=== PATIENT | male | born 1950 | race Caucasian/White ===

== ENCOUNTER → 2018-05-21 | Outpatient (CLI) | payer MEDICARE, OTHER ==
--- NOTE | 2018-05-21 14:53 | Diagnostic Imaging Report ---
INDICATION: Chronic right knee pain. Time of exam 2:37 PM 3 views of the right knee were obtained. Medial compartmental and patellofemoral compartmental degenerative change is seen with joint space narrowing and marginal spurring. Lateral compartment is maintained. No fracture, dislocation or effusion is seen. IMPRESSION: Degenerative changes. No acute bony abnormality is detected. Dictated by: Dictated on workstation # [id number]
== END ==
LOC: RAD FS 14:32
PROVIDERS: ATTEND Nurse Practitioner
DX: M17.11 Unilateral primary osteoarthritis, right knee (principal)
CPT/HCPCS: 73562

== ENCOUNTER → 2018-10-03 | Outpatient (CLI) | payer MEDICARE, OTHER ==
[~2018-10-03] MED LIST: CATHETER FLUSH 10 ML SYR IV PRN; HOLD METFORMIN - RECEIVED CONTRAST 20 ML VIAL IV SCH; IOHEXOL 350 MG/ML 100 ML (OMNIPAQUE 350) VIAL IV ONE; NS 100 ML (IVPB) BAG IV ONE
[2018-10-03 13:54] LABS: HEMATOCRIT 41 % (40-54); HEMOGLOBIN 13.5 G/DL (13.3-17.7); MEAN CORPUSCULAR HEMOGLOBIN 33 PG (25-34); WHITE BLOOD COUNT 7.1 10^3/uL (4.3-11.0)
[2018-10-03 13:55] LABS: BASOPHILS % (AUTO) 0 % (0-10); EOSINOPHILS # (AUTO) 0.1 10^3/uL (0.0-0.3); EOSINOPHILS % (AUTO) 1 % (0-10); LYMPHOCYTES # (AUTO) 1.5 X 10^3 (1.0-4.0); LYMPHOCYTES % (AUTO) 21 % (12-44); MEAN CORPUSCULAR HGB CONC 33 G/DL (32-36); MEAN CORPUSCULAR VOLUME 99 FL (80-99); MEAN PLATELET VOLUME 9.6 FL (7.4-10.4); MONOCYTES # (AUTO) 0.6 X 10^3 (0.0-1.0); MONOCYTES % (AUTO) 8 % (0-12); NEUTROPHILS # (AUTO) 4.9 X 10^3 (1.8-7.8); NEUTROPHILS % (AUTO) 69 % (42-75); PLATELET COUNT 235 10^3/uL (130-400); RED CELL DISTRIBUTION WIDTH 13.2 % (10.0-14.5)
[2018-10-03 14:07] LABS: ALANINE AMINOTRANSFERASE 24 U/L (0-55); ALBUMIN 4.4 GM/DL (3.2-4.5); ALKALINE PHOSPHATASE 92 U/L (40-136); BILIRUBIN,TOTAL 0.2 MG/DL (0.1-1.0); BUN/CREATININE RATIO 27; CALCIUM 9.5 MG/DL (8.5-10.1); CARBON DIOXIDE 26 MMOL/L (21-32); CHLORIDE 100 MMOL/L (98-107); CREATININE SERUM 1.01 MG/DL (0.60-1.30); GFR ESTIMATED > 60; GLUCOSE 117 MG/DL (70-105); POTASSIUM 4.2 MMOL/L (3.6-5.0); SODIUM 139 MMOL/L (135-145); TOTAL PROTEIN 7.1 GM/DL (6.4-8.2)
--- NOTE | 2018-10-04 12:24 | Diagnostic Imaging Report ---
PROCEDURE: CT chest, abdomen, and pelvis with and without contrast. TECHNIQUE: Precontrast images were obtained of the chest, abdomen, and pelvis. Multiple contiguous axial images were obtained through the chest, abdomen, and pelvis after administration of intravenous contrast. Auto Exposure Controls were utilized during the CT exam to meet ALARA standards for radiation dose reduction. INDICATION: Colon cancer. FINDINGS: The previous CT abdomen/pelvis exam of 09/09/2017 noted stranding about the head of the pancreas and raised the question of acute pancreatitis. On this exam, there is no stranding about the head of the pancreas. There do appear to be a few small nodular densities about the head of the pancreas but these are unchanged when compared to the prior exam. The liver is homogeneous and not enlarged. The spleen, gallbladder, kidneys, aorta, and inferior vena cava are unremarkable for an acute abnormality. A small cyst associated with the right kidney seen previously is again evident. The 1.1 cm low-density nodule arising from the right adrenal gland seen previously is again evident and no different. The left adrenal gland is unremarkable. The stomach is not well distended and consequently difficult to assess. As noted on the prior exam, there has been prior resection of the rectosigmoid colon. The anastomosis appears to be intact. There is diverticulosis of the sigmoid colon but there is no sign of acute diverticulitis. There is no pelvic mass or free fluid collection noted. The urinary bladder and prostate gland are unchanged when compared to the previous study. The prostate gland remains mildly enlarged. The appendix was visualized and is not abnormally thickened. There are no prior CT chest examinations available for comparison. The heart size is within normal limits. Sparse coronary artery calcifications are noted. The aorta is not abnormally dilated and there is no sign of dissection. There is no defect within the pulmonary arteries to indicate a pulmonary embolus. The lungs are generally clear and well aerated. There is no sign of failure, pneumonia, or of pleural effusion. There is no parenchymal lung mass identified. There is no mediastinal or hilar adenopathy. The thyroid gland is unremarkable. The bone windows show no sign of fracture or of a destructive lesion. IMPRESSION: 1. There is no acute abnormality of the chest, abdomen, or pelvis. There is no sign of neoplastic disease either. 2. The small nodular densities about the head of the pancreas are of uncertain etiology. These findings are similar to the prior exam. 3. The small right adrenal nodule seen previously appears stable. Most likely, this is a benign process. 4. The prostate gland remains mildly enlarged. Dictated by: Dictated on workstation # [id number]
== END ==
LOC: RAD FS 13:18
PROVIDERS: ATTEND Internal Medicine Hematology & Oncology
DX: C18.9 Malignant neoplasm of colon, unspecified (principal); E27.8 Other specified disorders of adrenal gland; K86.89 Other specified diseases of pancreas; N40.0 Benign prostatic hyperplasia without lower urinary tract symptoms
CPT/HCPCS: 36415; 71270; 74178; 80053; 82378; 83615; 85025

== ENCOUNTER → 2019-10-10 | Outpatient (CLI) | payer MEDICARE, OTHER ==
[~2019-10-10] MED LIST changes: +DIATRIZOATE MEGLUM/SODIUM 37% 120 ML (GASTROGRAFIN) PO ONE
[2019-10-10 08:34] LABS: HEMATOCRIT 40 % (40-54); HEMOGLOBIN 13.7 G/DL (13.3-17.7); MEAN CORPUSCULAR HEMOGLOBIN 33 PG (25-34); MEAN CORPUSCULAR HGB CONC 34 G/DL (32-36); MEAN CORPUSCULAR VOLUME 98 FL (80-99); MEAN PLATELET VOLUME 9.8 FL (7.4-10.4); PLATELET COUNT 230 10^3/uL (130-400); WHITE BLOOD COUNT 6.4 10^3/uL (4.3-11.0)
[2019-10-10 08:35] LABS: BASOPHILS % (AUTO) 1 % (0-10); EOSINOPHILS # (AUTO) 0.1 10^3/uL (0.0-0.3); EOSINOPHILS % (AUTO) 1 % (0-10); LYMPHOCYTES # (AUTO) 1.2 X 10^3 (1.0-4.0); LYMPHOCYTES % (AUTO) 19 % (12-44); MONOCYTES # (AUTO) 0.5 X 10^3 (0.0-1.0); MONOCYTES % (AUTO) 8 % (0-12); NEUTROPHILS # (AUTO) 4.6 X 10^3 (1.8-7.8); NEUTROPHILS % (AUTO) 71 % (42-75)
[2019-10-10 08:56] LABS: ALANINE AMINOTRANSFERASE 23 U/L (0-55); ALKALINE PHOSPHATASE 100 U/L (40-136); BILIRUBIN,TOTAL 0.4 MG/DL (0.1-1.0); BUN/CREATININE RATIO 20; CALCIUM 9.3 MG/DL (8.5-10.1); CARBON DIOXIDE 23 MMOL/L (21-32); CHLORIDE 101 MMOL/L (98-107); CREATININE SERUM 0.83 MG/DL (0.60-1.30); GFR ESTIMATED > 60; GLUCOSE 164 MG/DL (70-105); POTASSIUM 4.2 MMOL/L (3.6-5.0); SODIUM 137 MMOL/L (135-145); TOTAL PROTEIN 7.1 GM/DL (6.4-8.2)
[2019-10-10 08:57] LABS: ALBUMIN 4.3 GM/DL (3.2-4.5)
--- NOTE | 2019-10-10 10:16 | Diagnostic Imaging Report ---
PROCEDURE: CT chest, abdomen, and pelvis with and without contrast. TECHNIQUE: Precontrast images were obtained of the chest, abdomen, and pelvis. Multiple contiguous axial images were obtained through the chest, abdomen, and pelvis after administration of intravenous contrast. Auto Exposure Controls were utilized during the CT exam to meet ALARA standards for radiation dose reduction. INDICATION: Colon cancer. COMPARISON: 10/03/2018 and 09/09/2017 FINDINGS: No significant adenopathy within chest. No aneurysm or dissection of the thoracic aorta. The heart is within normal limits in size. No pericardial effusion. No pleural effusion. No pneumothorax. The lungs are clear of focal pulmonary opacity. The trachea is patent. Scattered osseous degenerative changes without acute osseous abnormality. The liver, spleen, and gallbladder are unremarkable. 1.1 cm nodule within the right adrenal gland is unchanged since September 2017. The left adrenal gland is unremarkable. The pancreas is unremarkable. Right renal cyst. The kidneys are otherwise unremarkable. Scattered vascular calcifications without aneurysmal dilatation of the abdominal aorta. Tiny fat-containing umbilical hernia. The urinary bladder is unremarkable. Small fat-containing bilateral inguinal hernias. The prostate gland is mildly enlarged. Postsurgical changes associated with the distal sigmoid colon. The appendix is unremarkable. No bowel obstruction or pneumatosis. No significant adenopathy, free air, or free fluid within the abdomen or pelvis. Scattered osseous degenerative changes without acute osseous abnormality. IMPRESSION: No acute abnormality. Postsurgical changes associated with the distal colon without definite evidence of metastatic disease. Small right adrenal gland nodule is indeterminate, though unchanged since September 2017. Dictated by: Dictated on workstation # [id number]
== END ==
LOC: RAD FS 08:10
PROVIDERS: ATTEND Internal Medicine Hematology & Oncology
DX: C19 Malignant neoplasm of rectosigmoid junction (principal); E27.8 Other specified disorders of adrenal gland; Z98.890 Other specified postprocedural states
CPT/HCPCS: 36415; 71270; 74178; 80053; 82378; 83615; 85025

== ENCOUNTER 2021-06-30 21:40 | Emergency (ER) | payer MEDICARE, OTHER ==
[~2021-06-30] VITALS: Ht 175 cm; Wt 103.1 kg
--- NOTE | 2021-06-30 21:53 | ED Integumentary General ---
General Stated Complaint: CAT BITE, R HAND LAC History of Present Illness Date Seen by Provider: June 30, 2021 Time Seen by Provider: 21:53 Initial Comments 71-year-old male presents with multiple cat bites to his right hand. Patient reports that their small cat got his leg stuck over a fireplace shelf and was dangling through the reached up to help him get down and the cat was just in pain and scared and bit him multiple times. Patient has multiple small puncture wounds diffusely over the back of his right hand. No suturable wounds. Patient reports he is up to date on his tetanus Allergies and Home Medications Allergies Coded Allergies: No Allergy Information Available (Unverified , 10/03/18) Patient Home Medication List Home Medication List Reviewed: Yes Review of Systems Review of Systems Constitutional: no symptoms reported EENTM: no symptoms reported Respiratory: no symptoms reported Cardiovascular: no symptoms reported Gastrointestinal: no symptoms reported Musculoskeletal: see HPI Skin: see HPI Psychiatric/Neurological: No Symptoms Reported Physical Exam Vital Signs Capillary Refill : General Appearance: WD/WN, no apparent distress Cardiovascular: normal peripheral pulses, regular rate, rhythm Respiratory: no respiratory distress, no accessory muscle use Extremities: normal range of motion, non-tender Neurologic/Psychiatric: alert, normal mood/affect, oriented x 3 Skin: other (Multiple small puncture wounds consistent with cat bite over the right hand with some mild swelling of the right hand) Progress/Results/Core Measures Progress Progress Note : Progress Note Patient with multiple small puncture wounds, I will have him keep it clean with warm soapy water. I will give him some prophylactic Augmentin due to the numerous number of cat bites on the hand and wrist for infection. After approximately 48 hours he could use thin layer of Vaseline. Recommend he keep it covered with sterile dressing for at least the next couple days. Patient stable and discharged Departure Impression Primary Impression: Cat bite Qualified Codes: W55.01XA - Bitten by cat, initial encounter Disposition: 01 HOME, SELF-CARE Condition: Stable Departure-Patient Inst. Referrals: REY LEONE MD (PCP/Family) Primary Care Physician Patient Instructions: Animal Bites (DC) Add. Discharge Instructions: Keep wound covered with clean sterile dressing for at least the next 48 hours Keep clean with warm soapy water You may use a thin layer of Vaseline over the wound after 48 hours Please monitor for infection and with any concerns follow-up with your primary care provider Scripts Amoxicillin/Potassium Clav (Amox Tr-K Clv 875-125 mg Tab) 875 Mg-125 Mg Tablet 1 EACH PO BID, #10 TAB Prov: HERMILO LARSON DO 06/30/21 HERMILO LARSON DO June 30, 2021 21:53
[2021-06-30] MEDS ORDERED: KETOROLAC 30 MG/ML VIAL IM STA (21:59)
[2021-06-30] MEDS ORDERED: AMOX1TAB12 PO (22:04)
[2021-06-30 22:28] VITALS: BP 148/86
== END 2021-06-30 22:28 | disposition home or self-care (01) ==
LOC: EDUNIT# 21:40 → ER FS 21:41
DX: S61.451A Open bite of right hand, initial encounter (principal); W55.01XA Bitten by cat, initial encounter
CPT/HCPCS: 99284

== ENCOUNTER 2021-09-07 17:14 | Emergency (ER) | payer MEDICARE, OTHER ==
[~2021-09-07 17:14] MED LIST changes: +AMOX1TAB12 PO; -CATHETER FLUSH 10 ML SYR IV PRN; -DIATRIZOATE MEGLUM/SODIUM 37% 120 ML (GASTROGRAFIN) PO ONE; -HOLD METFORMIN - RECEIVED CONTRAST 20 ML VIAL IV SCH; -IOHEXOL 350 MG/ML 100 ML (OMNIPAQUE 350) VIAL IV ONE; -NS 100 ML (IVPB) BAG IV ONE
[2021-09-07] MEDS ORDERED: ASPIRIN 81 MG CHEW (CHILDREN'S ASA) PO ONE (17:30)
--- NOTE | 2021-09-07 17:30 | ED Chest Pain ---
General Stated Complaint: CHEST PRESSURE Source: patient Exam Limitations: no limitations History of Present Illness Date Seen by Provider: Sep 07, 2021 Time Seen by Provider: 17:17 Initial Comments 71-year-old male with past medical history of hypertension and high cholesterol coming in as referral from walk-in clinic due to chest discomfort. Been going o n for couple days, intermittent, mild, and pressure-like discomfort. He is not having any discomfort right now. Denies any prior cardiac history, no DVT or PE history, no leg swelling or pain, no recent surgery. He actually went to the clinic because he was concerned he passed a kidney stone. He says the pain is better and he feels like that has resolved. He is otherwise denying any other acute complaints Allergies and Home Medications Allergies Coded Allergies: No Allergy Information Available (Unverified , 10/03/18) Patient Home Medication List Home Medication List Reviewed: Yes Amoxicillin/Potassium Clav (Amox Tr-K Clv 875-125 mg Tab) 875 Mg-125 Mg Tablet, 1 EACH PO BID Prescribed by: HERMILO LARSON on 06/30/212203 Doxycycline Hyclate (Doxycycline Hyclate) 100 Mg Tablet, 100 MG PO BID Prescribed by: RALPH BRUSH on 09/07/211810 Review of Systems Review of Systems Constitutional: No fever EENTM: No Blurred Vision Respiratory: Denies Cough Cardiovascular: Chest Pain Gastrointestinal: Denies Abdominal Pain Genitourinary: No Symptoms Reported Musculoskeletal: no symptoms reported Skin: no symptoms reported Psychiatric/Neurological: No Symptoms Reported Endocrine: No Symptoms Reported Hematologic/Lymphatic: No Symptoms Reported All Other Systems Reviewed Negative Unless Noted: Yes Past Oluaaaj-Krywts-Cxmbwg Hx Patient Social History Tobacco Use?: No Past Medical History Surgery/Hospitalization HX: h/o colon cancer Surgeries: Yes (partial colectomy) Physical Exam Vital Signs Vital Signs - First Documented 09/07/21 17:32 Temp 36.2 Pulse 91 Resp 20 B/P (MAP) 173/96 (121) Pulse Ox 95 O2 Delivery Room Air Capillary Refill : Height, Weight, BMI Height: '" Weight: lbs. oz. kg; 33.00 BMI Method: General Appearance: No Apparent Distress, WD/WN, Other (well appearing, smiling) HEENT: PERRL/EOMI, Normal ENT Inspection, Pharynx Normal Neck: Full Range of Motion, Normal Inspection, Non Tender, Supple Respiratory: Chest Non Tender, Lungs Clear, Normal Breath Sounds, No Accessory Muscle Use, No Respiratory Distress Cardiovascular: Regular Rate, Rhythm, No Edema, Normal Peripheral Pulses Gastrointestinal: Normal Bowel Sounds, Non Tender, Soft; No Distended, No Guarding; Other (no CVA/flank pain) Extremity: Normal Capillary Refill, Normal Inspection, Normal Range of Motion, Non Tender, No Calf Tenderness, No Pedal Edema Neurologic/Psychiatric: Alert, No Motor/Sensory Deficits, Normal Mood/Affect, Other (normal gait) Skin: Normal Color, Warm/Dry Lymphatic: No Adenopathy Progress/Results/Core Measures Results/Orders Lab Results Laboratory Tests Test 09/07/21 17:29 Range/Units White Blood Count 7.7 4.3-11.0 10^3/uL Red Blood Count 3.71 L 4.30-5.52 10^6/uL Hemoglobin 12.8 L 13.3-17.7 g/dL Hematocrit 37 L 40-54 % Mean Corpuscular Volume 100 H 80-99 fL Mean Corpuscular Hemoglobin 35 H 25-34 pg Mean Corpuscular Hemoglobin Concent 35 32-36 g/dL Red Cell Distribution Width 13.4 10.0-14.5 % Platelet Count 170 130-400 10^3/uL Mean Platelet Volume 10.2 9.0-12.2 fL Immature Granulocyte % (Auto) 1 % Neutrophils (%) (Auto) 74 42-75 % Lymphocytes (%) (Auto) 17 12-44 % Monocytes (%) (Auto) 7 0-12 % Eosinophils (%) (Auto) 1 0-10 % Basophils (%) (Auto) 0 0-10 % Neutrophils # (Auto) 5.7 1.8-7.8 10^3/uL Lymphocytes # (Auto) 1.3 1.0-4.0 10^3/uL Monocytes # (Auto) 0.6 0.0-1.0 10^3/uL Eosinophils # (Auto) 0.1 0.0-0.3 10^3/uL Basophils # (Auto) 0.0 0.0-0.1 10^3/uL Immature Granulocyte # (Auto) 0.1 0.0-0.1 10^3/uL Prothrombin Time 12.4 12.2-14.7 SEC INR Comment 0.9 0.8-1.4 Activated Partial Thromboplast Time 27 24-35 SEC Sodium Level 137 135-145 MMOL/L Potassium Level 4.2 3.6-5.0 MMOL/L Chloride Level 102 98-107 MMOL/L Carbon Dioxide Level 25 21-32 MMOL/L Anion Gap 10 5-14 MMOL/L Blood Urea Nitrogen 20 H 7-18 MG/DL Creatinine 1.10 0.60-1.30 MG/DL Estimat Glomerular Filtration Rate 73 BUN/Creatinine Ratio 18 Glucose Level 200 H 70-105 MG/DL Calcium Level 9.8 8.5-10.1 MG/DL Corrected Calcium 9.8 8.5-10.1 MG/DL Magnesium Level 1.9 1.6-2.4 MG/DL Total Bilirubin 0.3 0.1-1.0 MG/DL Aspartate Amino Transf (AST/SGOT) 12 5-34 U/L Alanine Aminotransferase (ALT/SGPT) 23 0-55 U/L Alkaline Phosphatase 79 40-136 U/L Troponin I < 0.30 <0.30 NG/ML Pro-B-Type Natriuretic Peptide 215.5 H <125.0 PG/ML Total Protein 6.8 6.4-8.2 GM/DL Albumin 4.0 3.2-4.5 GM/DL Lipase 75 8-78 U/L My Orders Orders - RALPH BRUSH MD Cbc With Automated Diff (09/07/21 17:26) Magnesium (09/07/21 17:26) Chest 1 View Ap/Pa Only (09/07/21 17:26) Ekg Tracing (09/07/21 17:26) Comprehensive Metabolic Panel (09/07/21 17:26) Protime With Inr (09/07/21 17:26) Partial Thromboplastin Time (09/07/21 17:26) O2 (09/07/21 17:26) Monitor-Rhythm Ecg Trace Only (09/07/21 17:26) Aspirin Chewable Tablet (Baby Aspirin Ch (09/07/21 17:30) Ed Iv/Invasive Line Start (09/07/21 17:26) Lipase (09/07/21 17:26) Troponin I Fs (09/07/21 17:26) Probnp Fs (09/07/21 17:26) Ua Culture If Indicated (8/3/22 17:26) Doxycycline Hyclate Tablet (Vibramycin T (09/07/21 18:11) Medications Given in ED Current Medications Medications Dose Ordered Sig/Ella Route Start Time Stop Time Status Last Admin Dose Admin Aspirin 324 mg ONCE ONCE PO 09/07/21 17:30 09/07/21 17:31 DC 09/07/21 18:06 324 MG Vital Signs/I&O 09/07/21 17:32 Temp 36.2 Pulse 91 Resp 20 B/P (MAP) 173/96 (121) Pulse Ox 95 O2 Delivery Room Air Progress Progress Note : Progress Note 71-year-old male referred to the ER for chest discomfort. ABCs were intact and vitals were stable on presentation. Physical exam reassuring including no focal abnormalities. EKG with no acute ischemic changes. An IV was placed and basic labs were obtained including cardiac biomarkers. These were negative for acute findings. X-ray of the chest with possible left sided basilar opacity. He is not having any cough or fever, but we will go ahead and treat this with a short course of antibiotics just in case this was the cause of his discomfort. I believe otherwise he is stable for discharge with outpatient follow-up. He was sent home with strict return precautions Initial ECG Impression Date: Sep 07, 2021 Initial ECG Impression Time: 17:32 Initial ECG Rate: 94 Initial ECG Rhythm: Normal Sinus Comment narrow QRS, normal axis, no significant ST changes or T wave abnormalities Diagnostic Imaging Diagonstic Imaging: Xray Plain Films/CT/US/NM/MRI: chest Comments [facility]. [place], [place] NAME: CAROL LESTER [facility] REC#: [id number] PT STATUS: REG ER : 1950 PHYSICIAN: RALPH BRUSH MD ADMIT DATE: 09/07/21/ER FS Signed Date of Exam:09/07/21 CHEST 1 VIEW AP/PA ONLY EXAMINATION: Chest radiograph, portable AP view. DATE: 09/07/2021 5:57 PM INDICATION: 71-year-old male, chest pain. COMPARISON: CT chest, abdomen and pelvis October 10, 2019. FINDINGS: Heart size and mediastinal contours are grossly unremarkable. There is nonspecific left basilar airspace consolidation with obscuration of visualization of the left hemidiaphragm. There is no identified pneumothorax. The right lung appears grossly clear. IMPRESSION: 1. Nonspecific left basilar airspace consolidation which may relate to effusion, infiltrate, and/or atelectasis. Dictated by: Dictated on workstation # [id number] Dict: 09/07/21 1757 Trans: 09/07/21 1800 CVB [id number] Interpreted by: MIKE RONDON MD Electronically signed by: MIKE RONDON MD 09/07/21 1800 Departure Impression Primary Impression: Left pulmonary infiltrate on CXR Disposition: HOME, SELF-CARE Condition: Stable Departure-Patient Inst. Decision time for Depature: 18:22 Referrals: REY LEONE MD (PCP/Family) Primary Care Physician Patient Instructions: Pneumonia in Adults Add. Discharge Instructions: Your left lung looks like it does have a developing infection that is very mild. You will be on antibiotics for the next week. Follow-up with your regular doctor if things are not improving. It does not appear like you are having a heart attack. Your kidney function is normal. Scripts Doxycycline Hyclate (Doxycycline Hyclate) 100 Mg Tablet 100 MG PO BID for 7 Days, #14 TAB 0 Refills Prov: RALPH BRUSH MD 09/07/21 Work/School Note: Work Release Form Date Seen in the Emergency Department: Sep 07, 2021 Return to Work: Sep 08, 2021 Restrictions: No Restrictions RALPH BRUSH MD Sep 07, 2021 17:30
[2021-09-07 17:42] LABS: BASOPHILS % (AUTO) 0 % (0-10); EOSINOPHILS # (AUTO) 0.1 10^3/uL (0.0-0.3); EOSINOPHILS % (AUTO) 1 % (0-10); HEMATOCRIT 37 % (40-54); HEMOGLOBIN 12.8 g/dL (13.3-17.7); LYMPHOCYTES # (AUTO) 1.3 10^3/uL (1.0-4.0); LYMPHOCYTES % (AUTO) 17 % (12-44); MEAN CORPUSCULAR HEMOGLOBIN 35 pg (25-34); MEAN CORPUSCULAR HGB CONC 35 g/dL (32-36); MEAN CORPUSCULAR VOLUME 100 fL (80-99); MEAN PLATELET VOLUME 10.2 fL (9.0-12.2); MONOCYTES # (AUTO) 0.6 10^3/uL (0.0-1.0); MONOCYTES % (AUTO) 7 % (0-12); NEUTROPHILS # (AUTO) 5.7 10^3/uL (1.8-7.8); NEUTROPHILS % (AUTO) 74 % (42-75); PLATELET COUNT 170 10^3/uL (130-400); WHITE BLOOD COUNT 7.7 10^3/uL (4.3-11.0)
--- NOTE | 2021-09-07 18:00 | Diagnostic Imaging Report ---
EXAMINATION: Chest radiograph, portable AP view. DATE: 09/07/2021 5:57 PM INDICATION: 71-year-old male, chest pain. COMPARISON: CT chest, abdomen and pelvis October 10, 2019. FINDINGS: Heart size and mediastinal contours are grossly unremarkable. There is nonspecific left basilar airspace consolidation with obscuration of visualization of the left hemidiaphragm. There is no identified pneumothorax. The right lung appears grossly clear. IMPRESSION: 1. Nonspecific left basilar airspace consolidation which may relate to effusion, infiltrate, and/or atelectasis. Dictated by: Dictated on workstation # [id number]
[2021-09-07 18:02] LABS: INR 0.9 (0.8-1.4); PROTHROMBIN TIME PATIENT 12.4 SEC (12.2-14.7)
[2021-09-07] MEDS ORDERED: DOXYCYCLINE 100 MG (VIBRAMYCIN) TABLET PO STA (18:11)
[2021-09-07] MEDS ORDERED: DOXY100T2 PO (18:11)
[2021-09-07 18:15] LABS: BILIRUBIN,TOTAL 0.3 MG/DL (0.1-1.0); CALCIUM 9.8 MG/DL (8.5-10.1); CREATININE SERUM 1.1 MG/DL (0.60-1.30); MAGNESIUM 1.9 MG/DL (1.6-2.4); POTASSIUM 4.2 MMOL/L (3.6-5.0); TOTAL PROTEIN 6.8 GM/DL (6.4-8.2)
[2021-09-07 18:36] VITALS: BP 148/78
== END 2021-09-07 18:32 | disposition home or self-care (01) ==
LOC: EDUNIT# 17:14 → ER FS 17:15
DX: R91.8 Other nonspecific abnormal finding of lung field (principal); Z86.79 Personal history of other diseases of the circulatory system
CPT/HCPCS: 36415; 71045; 80053; 83690; 83735; 83880; 84484; 85025; 85610; 85730; 93005; 93041

== ENCOUNTER → 2022-03-29 | Outpatient (CLI) | payer MEDICARE, OTHER ==
[~2022-03-29] MED LIST changes: +DOXY100T2 PO
== END | disposition home or self-care (01) ==
LOC: PREOP 05:40
PROVIDERS: ATTEND Surgery
DX: Z01.818 Encounter for other preprocedural examination (principal)